=== PATIENT | male | born 1990 ===

== ENCOUNTER 2023-05-15 22:57 | Emergency (ER) | payer BC ==
[2023-05-15] MEDS: Sodium Chloride 0.9% 10 ML Syringe FLUSH PRN (23:19)
[2023-05-15] MEDS: cefTRIAXone 2 GM in Sodium Chloride 0.9% 50 ML IV ONE (23:19)
[2023-05-15] MEDS: Sodium Chloride 0.9% 2.5 ML Syringe FLUSH PRN (23:19)
[2023-05-15 23:33] LABS: HEMOGLOBIN 15.8 g/dL (14.0-18.0); MEAN CORPUSCULAR HEMOGLOBIN 29.5 pg (28.0-32.0); MEAN CORPUSCULAR HGB CONC 35.1 g/dL (32.0-36.0); MEAN PLATELET VOLUME 10.8 fL (9.4-12.4); PLATELET COUNT,PLT 241 K/uL (150-400); RED BLOOD CELL COUNT 5.36 M/uL (4.52-5.90); WHITE BLOOD CELL COUNT,WBC 16.85 K/uL (3.9-11.3)
[2023-05-15] MEDS: VANCOmycin 2 GM/400 ML 2 GM in Premix Bag 1 BAG IV ONE (23:37)
[2023-05-15] MEDS: Sulfamethoxazole/Trimethoprim 800-160 MG Tab PO ONE (23:40)
[2023-05-15 23:50] LABS: EOSINOPHILS ABSOLUTE MAN 0.34 K/uL (0.00-0.45); EOSINOPHILS PERCENT MAN 2 % (0-6); LYMPHOCYTES ABSOLUTE MAN 3.37 K/uL (1.00-4.80); LYMPHOCYTES PERCENT MAN 20 % (24-44); MONOCYTES ABSOLUTE MAN 1.35 K/uL (0.00-0.80); MONOCYTES PERCENT MAN 8 % (0-8); SEG NEUTROPHILS PERCENT MAN 70 % (41-71)
[2023-05-15 23:55] LABS: A/G RATIO 1.2 (0.9-1.6); ALBUMIN 4.2 g/dL (3.4-5.0); BILIRUBIN TOTAL 1.9 mg/dL (0.2-1.0); CALCIUM 9.1 mg/dL (8.5-10.1); CARBON DIOXIDE,CO2 27.5 mmol/L (21.0-32.0); CREATININE 1.1 mg/dL (0.8-1.3); EST CRCL DRUG DOSING (CG) 100.78 mL/min; PROTEIN TOTAL,TP 7.7 g/dL (6.4-8.2)
[2023-05-16] MEDS: Ibuprofen 600 MG Tab PO ONE (00:02)
[2023-05-16] MEDS: Acetaminophen 500 MG Tab PO ONE (00:02)
== END 2023-05-16 00:20 | disposition home or self-care (01) ==
LOC: MW.ED 22:57
DX: N48.22 Cellulitis of corpus cavernosum and penis (principal); Z91.048 Other nonmedicinal substance allergy status; Z79.899 Other long term (current) drug therapy; Z75.8 Other problems related to medical facilities and other health care
CPT/HCPCS: 36415; 80053; 85025; 96365; 99283; A9270; J0696; J3490

== ENCOUNTER 2023-05-18 10:22 | Emergency (ER) | payer BC ==
[2023-05-18 11:19] LABS: AMPHETAMINES SCREEN, URINE PRESUMPTIVE POSITIVE (CUTOFF=500); BARBITURATE SCREEN,URINE NEGATIVE (CUTOFF=200); BENZODIAZEPINES SCREEN,URINE PRESUMPTIVE POSITIVE (CUTOFF=150); BUPRENORPHINE SCREEN,URINE NEGATIVE (CUTOFF=10); METHADONE SCREEN, URINE NEGATIVE (CUTOFF=200); METHAMPHETAMINES SCREEN, URINE PRESUMPTIVE POSITIVE (CUTOFF=500); OXYCODONE SCREEN,URINE NEGATIVE (CUT0FF=100); PCP SCREEN,URINE NEGATIVE (CUTOFF=25); THC SCREEN,URINE 20 NG/ML PRESUMPTIVE POSITIVE (CUTOFF=50)
== END 2023-05-18 11:34 | disposition home health service (06) ==
LOC: EDBD → MERGE 10:22 → MW.ED 10:22
DX: Z02.89 Encounter for other administrative examinations (principal)
CPT/HCPCS: 80305-QW; 99285

== ENCOUNTER 2023-05-18 11:19 | Emergency (ER) | payer BC | END 2023-05-18 11:34 | disposition left against medical advice (07) | LOC: MW.ED 11:19 | DX: F19.10 Other psychoactive substance abuse, uncomplicated (principal); R45.6 Violent behavior; Z53.29 Procedure and treatment not carried out because of patient's decision for other reasons; Z91.048 Other nonmedicinal substance allergy status; Z79.899 Other long term (current) drug therapy | CPT/HCPCS: 99283 ==

== ENCOUNTER 2023-05-19 13:19 | Emergency (ER) | payer BC ==
[2023-05-19] MEDS: Acetaminophen 500 MG Tab PO STA (14:00)
[2023-05-19] MEDS: Ibuprofen 800 MG Tab PO STA (14:01)
[2023-05-19 16:49] LABS: APPEARANCE,URINE CLEAR; BILIRUBIN,URINE NEGATIVE (NEGATIVE); COLOR,URINE YELLOW; GLUCOSE,URINE NEGATIVE (NEGATIVE); KETONES,URINE NEGATIVE (NEGATIVE); LEUKOCYTE ESTERASE,URINE NEGATIVE (NEGATIVE); NITRITE,URINE NEGATIVE (NEGATIVE); OCCULT BLOOD,URINE NEGATIVE (NEGATIVE); PROTEIN,URINE NEGATIVE (NEGATIVE); UROBILINOGEN,URINE 0.2 EU/dL (<2.0)
[2023-05-19] MEDS ORDERED: Amoxicillin/Clavulanate K 875-125 MG Tab PO STA (16:55)
[2023-05-19 16:56] LABS: C. TRACHOMATIS BY PCR NOT DETECTED; N. GONORRHOEAE BY PCR NOT DETECTED
[2023-05-19] MEDS ORDERED: cefTRIAXone 500 MG in Lidocaine 1% 1 ML IM STA (16:57)
[2023-05-19] MEDS: Sulfamethoxazole/Trimethoprim 800-160 MG Tab PO STA (17:13)
[2023-05-19] MEDS: Amoxicillin/Clavulanate K 875-125 MG Tab PO STA (17:13)
[2023-05-19 17:37] LABS: HIV12 AG/AB 4TH GEN W/REFLEX 0.3 INDEX (<1.0)
== END 2023-05-19 17:16 ==
LOC: MW.ED 13:19
DX: M25.571 Pain in right ankle and joints of right foot (principal); M25.572 Pain in left ankle and joints of left foot; M25.531 Pain in right wrist; M25.532 Pain in left wrist; N48.22 Cellulitis of corpus cavernosum and penis; I10 Essential (primary) hypertension; Z11.3 Encounter for screening for infections with a predominantly sexual mode of transmission; Z75.8 Other problems related to medical facilities and other health care; Z91.048 Other nonmedicinal substance allergy status; Z91.018 Allergy to other foods; Z79.899 Other long term (current) drug therapy
CPT/HCPCS: 73110; 73130; 73610; 73630; 81003; 86592; 86803; 87389; 87491; 87591; 99284; A9270